=== PATIENT | female | born 1955 | race African-American/Black ===

== ENCOUNTER 2017-03-19 08:03 | Emergency (ER) | payer OTHER ==
[~2017-03-19] VITALS: Ht 160 cm; Wt 64.9 kg
[2017-03-19 08:43] LABS: HEMOGLOBIN ISTAT 12.6 gm/dL
[2017-03-19] MEDS ORDERED: HYDR-971 PO (08:45)
--- NOTE | 2017-03-19 08:45 | PHYS DOC ---
Past History Past Medical History: Hypertension, Other Past Surgical History: Appendectomy Alcohol Use: Occasionally Drug Use: None Adult General Chief Complaint Chief Complaint: HEMORRHOIDS HPI HPI 61-year-old -French female with a history of hemorrhoids now complaining of attack of hemorrhoid pain and a small amount of bleeding. Patient does have a history of anemia for which she takes iron supplementation and with which she has been compliant. She is not currently bleeding. She denies abdominal pain or cramping. She has had subtotal relief with Preparation H suppository. She otherwise feels well is no history of coagulopathy and is not on any anticoagulants. Review of Systems Review of Systems Constitutional: Denies fever or chills [] Eyes: Denies change in visual acuity, redness, or eye pain [] HENT: Denies nasal congestion or sore throat [] Respiratory: Denies cough or shortness of breath [] Cardiovascular: No additional information not addressed in HPI [] GI: Denies abdominal pain, nausea, vomiting, bloody stools or diarrhea [] : Denies dysuria or hematuria [] Musculoskeletal: Denies back pain or joint pain [] Integument: Denies rash or skin lesions [] Neurologic: Denies headache, focal weakness or sensory changes [] Endocrine: Denies polyuria or polydipsia [] Current Medications Current Medications Current Medications Medications (Trade) Dose Ordered Sig/Clau Start Time Stop Time Status Last Admin Dose Admin Ibuprofen (Motrin) 600 mg 1X ONCE 03/19/17 08:45 03/19/17 08:46 UNV Allergies Allergies Allergies Coded Allergies Type Severity Reaction Last Updated Verified No Known Drug Allergies 02/04/15 No Physical Exam Physical Exam Well-appearing older female in no acute distress with no pallor no tachycardia clear lungs regular rate and rhythm benign abdomen. Anal exam with small hemorrhoids which are tender for patient however no erythema warmth or fluctuance. Perianal area with no induration or fluctuance crepitus or skin changes, or disproportionate tenderness. Nurse present for external anal exam. Digital rectal exam not clinically indicated and no evidence of dried blood or gross bleeding. Constitutional: Well developed, well nourished, no acute distress, non-toxic appearance. [] HENT: Normocephalic, atraumatic, bilateral external ears normal, oropharynx moist, no oral exudates, nose normal. [] Eyes: PERRLA, EOMI, conjunctiva normal, no discharge. [] Neck: Normal range of motion, no tenderness, supple, no stridor. [] Cardiovascular:Heart rate regular rhythm, no murmur [] Lungs & Thorax: Bilateral breath sounds clear to auscultation [] Abdomen: Bowel sounds normal, soft, no tenderness, no masses, no pulsatile masses. [] Skin: Warm, dry, no erythema, no rash. [] Back: No tenderness, no CVA tenderness. [] Extremities: No tenderness, no cyanosis, no clubbing, ROM intact, no edema. [] Neurologic: Alert and oriented X 3, normal motor function, normal sensory function, no focal deficits noted. [] Psychologic: Affect normal, judgement normal, mood normal. [] Current Patient Data Vital Signs Vital Signs Date Time Temp Pulse Resp B/P (MAP) Pulse Ox O2 Delivery O2 Flow Rate FiO2 03/19/17 08:17 98.4 69 16 99 Room Air EKG EKG [] Radiology/Procedures Radiology/Procedures [] Impressions: External hemorrhoids Bleeding hemorrhoids by history Course & Med Decision Making Course & Med Decision Making Pertinent Labs and Imaging studies reviewed. (See chart for details) [] Signs and symptoms consistent with mild hemorrhoidal bleeding and exacerbation of pain. NSAIDs given in ED. Patient with no active bleeding and mild discomfort only. No evidence of thrombosis infection abscess or mass except for mild external hemorrhoids. Perianal exam unremarkable. Patient stable with unremarkable vital signs and otherwise feeling well. Discussed her use of NSAIDs as needed as well as [id number] hemorrhoid treatment. Discussed with the patient will give prescription for several Hunter to use only as needed and she can follow up with her doctor for reevaluation and referral for continued hemorrhoid care as needed. sHe agrees with outpatient follow-up and strict return precautions given Dragon Disclaimer Dragon Disclaimer This chart was dictated in whole or in part using Voice Recognition software in a busy, high-work load, and often noisy Emergency Department environment. It may contain unintended and wholly unrecognized errors or omissions. Departure Departure: Disposition: 01 HOME, SELF-CARE Condition: GOOD Referrals: JOHN GUTHRIE APRN (PCP) Patient Instructions: Hemorrhoids Additional Instructions: It appears that her hemorrhoids are causing U an attack of pain today. He had described some bleeding however this is now resolved. No active bleeding from her hemorrhoid site at this time. Wwec-nly-davlvni treatments including suppositories and hemorrhoid pads as needed. Take ibuprofen 800 mg every 6 hours and use Hunter as needed for breakthrough pain. Follow up with your doctor tomorrow for reevaluation and to discuss referral for continued hemorrhoid care as needed. Scripts Hydrocodone Bit/Acetaminophen (NORCO 5-325 TABLET) 1 Each Tablet 1 TAB PO TID for 3 Days, #9 TAB 0 Refills Prov: KING NICHOLAS MD 03/19/17 KING NICHOLAS MD Mar 19, 2017 08:45
[2017-03-19 08:50] VITALS: BP 165/94
[2017-03-19] MEDS ORDERED: IBUPROFEN 600 MG TABLET. PO ONE (09:00)
== END 2017-03-19 09:04 | disposition home or self-care (01) ==
LOC: ER 08:03
DX: K64.4 Residual hemorrhoidal skin tags (principal); D64.9 Anemia, unspecified; I10 Essential (primary) hypertension
CPT/HCPCS: 80047; 99283

== ENCOUNTER 2017-04-17 06:22 | Emergency (ER) | payer OTHER ==
[~2017-04-17] VITALS: Ht 160 cm; Wt 65.8 kg
[~2017-04-17 06:22] MED LIST: HYDR-971 PO
[2017-04-17] MEDS ORDERED: HYDR-971 PO (07:00)
--- NOTE | 2017-04-17 07:00 | PHYS DOC ---
Past History Past Medical History: GERD, Hypertension, Other Past Surgical History: Appendectomy Alcohol Use: Occasionally Drug Use: None Adult General Chief Complaint Chief Complaint: KNEE SWELLING HPI HPI Patient is a 61-year-old female who drove herself to the emergency department from her job at [employer] with the complaint of knee pain and swelling since yesterday. Her right knee has been swollen, warm, red, and painful since just today, and her left knee is also somewhat painful. She did not injure herself yesterday. She did not work yesterday, she was at home doing housework. Last night, a friend gave her 2 oxycodone's and she took those about 9 PM and she did get some rest. This morning she woke up at 3 AM and took 2 ibuprofen. Her shift started at 4. She was at work but just unable to work because of her right knee pain. She left work and drove here to the ED. She's never had this kind of knee pain before. She does have arthritis in her hands. No fever or chills. Review of Systems Review of Systems Constitutional: Denies fever or chills [] Musculoskeletal: As in history of present illness Allergies Allergies Allergies Coded Allergies Type Severity Reaction Last Updated Verified No Known Drug Allergies 02/04/15 No Physical Exam Physical Exam Constitutional: Well developed, well nourished, no acute distress, non-toxic appearance. Patient ambulated from her car into the ED but required a wheelchair to go to the exam room. HENT: Normocephalic, atraumatic, bilateral external ears normal, nose normal. [ ] Eyes: conjunctiva normal, no discharge. [] Neck: Normal range of motion, no stridor. [] Skin: Warm, dry, no erythema, no rash. [] Extremities: Right knee has mild diffuse swelling, may have a joint effusion that is not large. Right knee is mildly warm to the touch. Diffusely tender to touch. Patient has difficulty with range of motion of the knee due to pain. Passively the knee is able to be fully extended and flexed without much difficulty. Right calf is soft, non-indurated. Left knee is not swollen, no redness or warmth. Neurologic: Alert and oriented X 3, normal motor function, normal sensory function, no focal deficits noted. [] Current Patient Data Vital Signs Vital Signs Date Time Temp Pulse Resp B/P (MAP) Pulse Ox O2 Delivery O2 Flow Rate FiO2 04/17/17 06:34 98.5 79 20 97 Room Air EKG EKG [] Radiology/Procedures Radiology/Procedures Three-view x-rays of both knees read by me. The left knee is unremarkable. The right knee exhibits DJD which is worse on the lateral aspect. No acute injury. [ ] Course & Med Decision Making Course & Med Decision Making Pertinent Labs and Imaging studies reviewed. (See chart for details) I believe the patient is having a flare of DJD pain in the right knee. I reviewed her med list. She is already taking Celebrex so we will not add an NSAID. She does not have any strong pain medicine on her med list. I gave her a limited number of hydrocodone. I gave her a note for 2 days off work to rest and ice. She may benefit from orthopedic referral for management of knee pain. See instructions for plan. [] Dragon Disclaimer Dragon Disclaimer This chart was dictated in whole or in part using Voice Recognition software in a busy, high-work load, and often noisy Emergency Department environment. It may contain unintended and wholly unrecognized errors or omissions. Departure Departure: Impression: Primary Impression: Acute pain of right knee Additional Impressions: Swelling of right knee joint Right knee DJD Disposition: 01 HOME, SELF-CARE Condition: STABLE Referrals: JOHN GUTHRIE APRN (PCP) Patient Instructions: Arthritis, Degenerative-Brief Additional Instructions: X-rays show that your right knee has arthritis, also called degenerative joint disease. This is caused by wear and tear, and also can be the result of an old injury. You are already taking Celebrex, which is an arthritis medicine. Do not take additional ibuprofen or other [id number] arthritis medicines with the Celebrex. I wrote you for a small number of strong pain pills. You may take these with the medicines you are already taking. Do not take medicines that belong to other people because you never know if they might react with your medicines. No driving or working while taking the strong pain pills. This is an opiate and may be sedating and constipating. Use ice to your knees 15-20 minutes out of every 1-2 hours. Try to stay off of your legs and keep your legs elevated for 1-2 days, as long as you're knees are hurting. Call tomorrow for an appointment with your doctor. Your doctor might want to refer you to a knee specialist. Scripts Hydrocodone Bit/Acetaminophen (NORCO 5-325 TABLET) 1 Each Tablet 1-2 TAB PO Q4-6HRS for knee pain, #12 TAB Prov: DALJIT WALDRON MD 04/17/17 Problem Qualifiers DALJIT WALDRON MD Apr 17, 2017 07:00
[2017-04-17 07:09] VITALS: BP 138/97
--- NOTE | 2017-04-17 08:07 | RAD ---
Indication bilateral knee pain. No history of injury. AP oblique and lateral views of both knees were obtained. Views of the left knee demonstrate normal bony mineralization. Significant degenerative changes are not seen. No acute finding is apparent. Views of the right knee demonstrate a chronic appearing deformity involving the lateral tibial plateau. An acute finding is not seen. IMPRESSION: Unremarkable left knee. Chronic change predominantly involving the lateral tibial plateau of the left knee
== END 2017-04-17 07:10 | disposition home or self-care (01) ==
LOC: ER 06:22
DX: M17.11 Unilateral primary osteoarthritis, right knee (principal); I10 Essential (primary) hypertension; K21.9 Gastro-esophageal reflux disease without esophagitis
CPT/HCPCS: 73562; 99284

== ENCOUNTER → 2017-08-03 | Outpatient (CLI) | payer OTHER ==
[2017-08-03 19:50] LABS: CALCIUM 8.6 mg/dL (8.5-10.1); CREATININE 1.3 mg/dL (0.6-1.0); GFR 50.2; POTASSIUM 3.9 mmol/L (3.5-5.1)
[2017-08-04 14:33] LABS: THYROID STIM HORMONE (TSH) 3.607 uIU/mL (0.358-3.740)
== END | disposition home or self-care (01) ==
LOC: SPEC 18:24
PROVIDERS: ATTEND Nurse Practitioner
DX: I10 Essential (primary) hypertension (principal); E55.9 Vitamin D deficiency, unspecified; K21.9 Gastro-esophageal reflux disease without esophagitis
CPT/HCPCS: 36415; 80048; 80061; 82306; 84443

== ENCOUNTER 2017-12-15 08:20 | Emergency (ER) | payer SELFPAY ==
[~2017-12-15] VITALS: Ht 160 cm; Wt 65.8 kg
[2017-12-15] MEDS ORDERED: IV NORMAL SALINE 1,000ML 1,000 ML IV ONE (09:45)
[2017-12-15] MEDS ORDERED: LIDO:MAALOX 1:1 20 ML SINGLE DOSE PO ONE (10:00)
[2017-12-15] MEDS ORDERED: ONDANSETRON PF 4 MG/2 ML VIAL. IV ONE (10:00)
[2017-12-15 10:10] LABS: BASO % 1 % (0-3); EOS # 0.1 x10^3/uL (0.0-0.7); EOS % 1 % (0-3); HEMATOCRIT 37.7 % (36.0-47.0); HEMOGLOBIN 12.6 g/dL (12.0-15.5); LYMPH # 1.6 x10^3/uL (1.0-4.8); LYMPH % 22 % (24-48); MEAN CORPUSCULAR HEMOGLOBIN 31 pg (25-35); MEAN CORPUSCULAR HGB CONC 33 g/dL (31-37); MEAN CORPUSCULAR VOLUME 92 fL (79-100); MONO # 0.9 x10^3/uL (0.0-1.1); MONO % 12 % (0-9); NEUT # 4.7 x10^3uL (1.8-7.7); NEUT % 64 % (31-73); PLATELET COUNT 156 x10^3/uL (140-400); RED BLOOD COUNT 4.09 x10^6/uL (3.50-5.40); RED CELL DISTRIBUTION WIDTH 13.1 % (11.5-14.5); WHITE BLOOD COUNT 7.3 x10^3/uL (4.0-11.0)
[2017-12-15 10:24] LABS: ALBUMIN 2.8 g/dL (3.4-5.0); ALBUMIN/GLOBULIN RATIO 0.7 (1.0-1.7); CALCIUM 9.5 mg/dL (8.5-10.1); CREATININE 1.1 mg/dL (0.6-1.0); GFR 60.9; POTASSIUM 3.7 mmol/L (3.5-5.1); TOTAL BILIRUBIN 0.7 mg/dL (0.2-1.0); TOTAL PROTEIN 7.1 g/dL (6.4-8.2)
--- NOTE | 2017-12-15 10:53 | RAD ---
Indication: Abdominal pain for 14 days and vomiting. TECHNIQUE: Grayscale and color Doppler images of the abdomen. COMPARISON: None FINDINGS: Visualized pancreas is within normal limits. IVC is patent. No gallstones, pericholecystic fluid or gallbladder wall thickening. Main portal vein is patent with hepatopedal flow. CBD measures 4 mm and is within normal limits. Liver measures 14 cm in length and is normal in echogenicity without apparent focal lesion. Right kidney measures 10.5 cm in length without hydronephrosis. IMPRESSION: No cholelithiasis or sonographic evidence of acute cholecystitis. Electronically signed by: Sam Denton DO (12/15/2017 10:50 AM) [id number]
[2017-12-15 10:54] LABS: % BANDS 2 % (0-9); % LYMPHS 20 % (24-48); % MONOS 16 % (0-10); % SEGS 62 % (35-66)
[2017-12-15 10:55] LABS: PLT ESTIMATE ADEQUATE (ADEQUATE)
[2017-12-15] MEDS ORDERED: OMEP20CA9 PO (10:55)
[2017-12-15] MEDS ORDERED: SUCR1TAB35 PO (10:55)
--- NOTE | 2017-12-15 10:56 | PHYS DOC ---
Past History Past Medical History: GERD, Hypertension, Other Past Surgical History: Appendectomy Alcohol Use: Occasionally Drug Use: None Adult General Chief Complaint Chief Complaint: ABDOMINAL PAIN HPI HPI Patient is a 62 year old F who presents with right upper quadrant dull constant pain with fluctuating intensity that seems to be associated with eating. She has had this pain for years but it has been more frequent over the past several weeks and more constant over the past several days. She describes nausea without vomiting. She also has associated loose stools with intermittent constipation. She has had her appendix removed but still has her gallbladder. She has no other associated symptoms at this time. She has no other exacerbating or alleviating factors. Review of Systems Review of Systems Constitutional: Denies fever or chills [] Eyes: Denies change in visual acuity, redness, or eye pain [] HENT: Denies nasal congestion or sore throat [] Respiratory: Denies cough or shortness of breath [] Cardiovascular: No additional information not addressed in HPI [] GI: Negative except history of present illness : Denies dysuria or hematuria [] Musculoskeletal: Denies back pain or joint pain [] Integument: Denies rash or skin lesions [] Neurologic: Denies headache, focal weakness or sensory changes [] Endocrine: Denies polyuria or polydipsia [] All other systems were reviewed and found to be within normal limits, except as documented in this note. Family History Family History No pertinent family medical history was reported Current Medications Current Medications Current Medications Medications (Trade) Dose Ordered Sig/Clau Start Time Stop Time Status Last Admin Dose Admin Ketorolac Tromethamine (Toradol) 30 mg 1X ONCE 12/15/17 11:00 12/15/17 11:01 UNV Multi-Ingredient Mouthwash/Gargle (Gi Cocktail) 20 ml 1X ONCE 12/15/17 10:00 12/15/17 10:01 DC 12/15/17 09:56 20 ML Ondansetron HCl (Zofran) 4 mg 1X ONCE 12/15/17 10:00 12/15/17 10:01 DC 12/15/17 10:02 4 MG Sodium Chloride 1,000 ml @ 1,000 mls/hr 1X ONCE 12/15/17 09:45 12/15/17 10:44 DC 12/15/17 10:01 1,000 MLS/HR Allergies Allergies Allergies Coded Allergies Type Severity Reaction Last Updated Verified No Known Drug Allergies 02/04/15 No Physical Exam Physical Exam Constitutional: Well developed, well nourished, no acute distress, non-toxic appearance. [] HENT: Normocephalic, atraumatic, Eyes: EOMI, conjunctiva normal, no discharge. [] Neck: Normal range of motion, no tenderness, supple, no stridor. [] Cardiovascular:Heart rate regular rhythm, Lungs & Thorax: Bilateral breath sounds clear to auscultation [] Abdomen: Bowel sounds normal, soft, no masses, no pulsatile masses. [] Mild generalized tenderness with worse pain in the right upper quadrant and epigastric area Skin: Warm, dry, no erythema, no rash. [] Back: No tenderness, no CVA tenderness. [] Extremities: No tenderness, no cyanosis, no clubbing, ROM intact, no edema. [] Neurologic: Alert and oriented X 3, normal motor function, normal sensory function, no focal deficits noted. [] Psychologic: Affect normal, judgement normal, mood normal. [] Current Patient Data Vital Signs Normal vital signs. Please review nursing documentation for specifics Lab Results Laboratory Tests Test 12/15/17 09:40 12/15/17 09:49 Sodium Level 140 mmol/L (136-145) Potassium Level 3.7 mmol/L (3.5-5.1) Chloride Level 104 mmol/L (98-107) Carbon Dioxide Level 28 mmol/L (21-32) Anion Gap 8 (6-14) Blood Urea Nitrogen 8 mg/dL (7-20) Creatinine 1.1 mg/dL (0.6-1.0) H Estimated GFR (Cockcroft-Gault) 60.9 BUN/Creatinine Ratio 7 (6-20) Glucose Level 93 mg/dL (70-99) Calcium Level 9.5 mg/dL (8.5-10.1) Total Bilirubin 0.7 mg/dL (0.2-1.0) Aspartate Amino Transferase (AST) 47 U/L (15-37) H Alanine Aminotransferase (ALT) 57 U/L (14-59) Alkaline Phosphatase 69 U/L (46-116) Total Protein 7.1 g/dL (6.4-8.2) Albumin 2.8 g/dL (3.4-5.0) L Albumin/Globulin Ratio 0.7 (1.0-1.7) L Lipase 368 U/L (73-393) White Blood Count 7.3 x10^3/uL (4.0-11.0) Red Blood Count 4.09 x10^6/uL (3.50-5.40) Hemoglobin 12.6 g/dL (12.0-15.5) Hematocrit 37.7 % (36.0-47.0) Mean Corpuscular Volume 92 fL (79-100) Mean Corpuscular Hemoglobin 31 pg (25-35) Mean Corpuscular Hemoglobin Concent 33 g/dL (31-37) Red Cell Distribution Width 13.1 % (11.5-14.5) Platelet Count 156 x10^3/uL (140-400) Neutrophils (%) (Auto) 64 % (31-73) Lymphocytes (%) (Auto) 22 % (24-48) L Monocytes (%) (Auto) 12 % (0-9) H Eosinophils (%) (Auto) 1 % (0-3) Basophils (%) (Auto) 1 % (0-3) Neutrophils # (Auto) 4.7 x10^3uL (1.8-7.7) Lymphocytes # (Auto) 1.6 x10^3/uL (1.0-4.8) Monocytes # (Auto) 0.9 x10^3/uL (0.0-1.1) Eosinophils # (Auto) 0.1 x10^3/uL (0.0-0.7) Basophils # (Auto) 0.0 x10^3/uL (0.0-0.2) Platelet Estimate Pending EKG EKG [] Radiology/Procedures Radiology/Procedures US ABDOMEN LIMITED Impressions: No acute disease noted Course & Med Decision Making Course & Med Decision Making Pertinent Labs and Imaging studies reviewed. (See chart for details) Magy's symptoms improved moderately with a GI cocktail. She was also given IV fluids and nausea medication. Dragon Disclaimer Dragon Disclaimer This electronic medical record was generated, in whole or in part, using a voice recognition dictation system. Departure Departure: Impression: Primary Impression: Gastritis Disposition: 01 HOME, SELF-CARE Condition: STABLE Referrals: JOHN GUTHRIE APRN (PCP) Patient Instructions: Gastritis, Adult Additional Instructions: Magy was seen in the emergency department for abdominal pain. No emergency medical condition was found on history or physical exam. She did have normal labs as well as a normal ultrasound of her upper abdomen. Her symptoms are most consistent with gastritis or irritation the stomach. This is likely caused by virus versus diet. She was encouraged to avoid fatty, spicy and greasy foods. She was given a prescription for Carafate to be taken before meals as well as omeprazole to be taken daily. She is encouraged to follow-up with her primary care doctor in the next 3-5 days and return the emergency room if she develops new or worsening symptoms. Scripts Omeprazole (OMEPRAZOLE) 20 Mg Capsule.dr 1 CAP PO DAILY, #30 CAP 0 Refills Prov: WISAM HEATH MD 12/15/17 Sucralfate (CARAFATE) 1 Gm Tablet 1 TAB PO QID for 14 Days, #56 TAB 1 Refill Take prior to meals Prov: WISAM HEATH MD 12/15/17 Problem Qualifiers Primary Impression: Gastritis Gastritis type: unspecified gastritis Chronicity: unspecified Gastritis bleeding: without bleeding Qualified Codes: K29.70 - Gastritis, unspecified, without bleeding WISAM HEATH MD Dec 15, 2017 10:56
[2017-12-15 11:03] VITALS: BP 157/79
[2017-12-15] MEDS ORDERED: KETOROLAC 30 MG/ML VIAL. IV ONE (11:15)
== END 2017-12-15 11:23 | disposition home or self-care (01) ==
LOC: ER 08:20
DX: K29.71 Gastritis, unspecified, with bleeding (principal); K21.9 Gastro-esophageal reflux disease without esophagitis; I10 Essential (primary) hypertension; Z90.49 Acquired absence of other specified parts of digestive tract
CPT/HCPCS: 36415; 76705; 80053; 83690; 85007; 85025; 96361; 96374; 96375; 99285; J1885; J2405; J7030

== ENCOUNTER 2018-12-14 21:20 | Emergency (ER) | payer OTHER ==
[~2018-12-14] VITALS: Ht 160 cm; Wt 65.8 kg
[~2018-12-14 21:20] MED LIST changes: +HYDR-3165 PO; -HYDR-971 PO; +OMEP20CA9 PO; +SUCR1TAB35 PO
--- NOTE | 2018-12-14 21:56 | ED.ADGEN ---
Past History Past Medical History: Anemia, GERD, Hypertension, Other Past Surgical History: Appendectomy Alcohol Use: None Drug Use: None Adult General Chief Complaint Chief Complaint back pain HPI HPI 63 years old female presented to the emergency department with back pain started yesterday after fall described her pain sharp constant in the lumbar area she is able to ambulate, today her pain got a lot worse rated 10 out of 10 units cold she received 50 g of fentanyl symptoms improved. Does not radiate to her lower extremities no weakness or numbness she denies any other symptoms Review of Systems Review of Systems Constitutional: Denies fever or chills [] Eyes: Denies change in visual acuity, redness, or eye pain [] HENT: Denies nasal congestion or sore throat [] Respiratory: Denies cough or shortness of breath [] Cardiovascular: No additional information not addressed in HPI [] GI: Denies abdominal pain, nausea, vomiting, bloody stools or diarrhea [] : Denies dysuria or hematuria [] Musculoskeletal: Denies joint pain [] Integument: Denies rash or skin lesions [] Neurologic: Denies headache, focal weakness or sensory changes [] Endocrine: Denies polyuria or polydipsia [] All other systems were reviewed and found to be within normal limits, except as documented in this note. Current Medications Current Medications Current Medications Medications (Trade) Dose Ordered Sig/Clau Start Time Stop Time Status Last Admin Dose Admin Fentanyl Citrate (Fentanyl 2ml Vial) 50 mcg 1X ONCE 12/14/18 21:30 12/14/18 21:36 DC 12/14/18 22:14 50 MCG Allergies Allergies Allergies Coded Allergies Type Severity Reaction Last Updated Verified No Known Drug Allergies 12/15/17 No Physical Exam Physical Exam Constitutional: Well developed, well nourished, no acute distress, non-toxic appearance. [] HENT: Normocephalic, atraumatic, bilateral external ears normal, oropharynx moist, no oral exudates, nose normal. [] Eyes: PERRLA, EOMI, conjunctiva normal, no discharge. [] Neck: Normal range of motion, no tenderness, supple, no stridor. [] Cardiovascular:Heart rate regular rhythm, no murmur [] Lungs & Thorax: Bilateral breath sounds clear to auscultation [] Abdomen: Bowel sounds normal, soft, no tenderness, no masses, no pulsatile masses. [] Skin: Warm, dry, no erythema, no rash. [] Back: Lumbar spine tenderness tenderness, no CVA tenderness. [] Extremities: No tenderness, no cyanosis, no clubbing, ROM intact, no edema. [] Neurologic: Alert and oriented X 3, normal motor function, normal sensory function, no focal deficits noted. [] Current Patient Data Vital Signs Vital Signs Date Time Temp Pulse Resp B/P (MAP) Pulse Ox O2 Delivery O2 Flow Rate FiO2 12/14/18 22:14 16 12/14/18 21:20 98.4 75 96 Room Air Lab Results Laboratory Tests Test 12/14/18 22:10 White Blood Count 3.7 x10^3/uL (4.0-11.0) L Red Blood Count 4.21 x10^6/uL (3.50-5.40) Hemoglobin 13.0 g/dL (12.0-15.5) Hematocrit 38.5 % (36.0-47.0) Mean Corpuscular Volume 91 fL (79-100) Mean Corpuscular Hemoglobin 31 pg (25-35) Mean Corpuscular Hemoglobin Concent 34 g/dL (31-37) Red Cell Distribution Width 13.7 % (11.5-14.5) Platelet Count 169 x10^3/uL (140-400) Sodium Level 138 mmol/L (136-145) Potassium Level 3.3 mmol/L (3.5-5.1) L Chloride Level 100 mmol/L (98-107) Carbon Dioxide Level 28 mmol/L (21-32) Anion Gap 10 (6-14) Blood Urea Nitrogen 8 mg/dL (7-20) Creatinine 1.1 mg/dL (0.6-1.0) H Estimated GFR (Cockcroft-Gault) 60.7 Glucose Level 121 mg/dL (70-99) H Calcium Level 8.6 mg/dL (8.5-10.1) EKG EKG [] Radiology/Procedures Radiology/Procedures [] Course & Med Decision Making Course & Med Decision Making Pertinent Labs and Imaging studies reviewed. (See chart for details) [] Final Impression Final Impression [] Problems: (1) Back pain Qualifiers: Qualified Codes: M54.5 - Low back pain (2) Back contusion Qualifiers: Qualified Codes: S20.229A - Contusion of unspecified back wall of thorax, initial encounter [facility] Disclaimer Dragon Disclaimer This electronic medical record was generated, in whole or in part, using a voice recognition dictation system. PIERRE MONTES MD Dec 14, 2018 21:56
--- NOTE | 2018-12-14 22:13 | RAD ---
CT LUMBAR SPINE WO CONTRAST Indication: Trauma from fall yesterday, severe lower back pain Technique: Noncontrast CT imaging was performed of the lumbar spine, multiplanar reconstruction images submitted. One or more of the following individualized dose reduction techniques were utilized for this examination: 1. Automated exposure control 2. Adjustment of the mA and/or kV according to patient size 3. Use of iterative reconstruction technique. Comparison: None Findings: There is transitional anatomy. There is grade 1 anterior spondylolisthesis at what is considered L5-S1, formed intervertebral disc space at what is considered S1-S2. Vertebral body stature is maintained. No acute lumbar spine fracture is identified. There is multilevel facet degenerative change greater inferiorly of the lumbar spine. There is disc osteophyte complex in the anterior aspect of the right S1-2 neural foramen with mild narrowing. There is also likely mild narrowing of the left L5-S1 neural foramen in part by bulge. There is mild degenerative disc disease L5-S1. There is mild dextroscoliosis. IMPRESSION: 1. There is transitional anatomy of the lumbar spine, grade 1 anterior spondylolisthesis at what is considered L5-S1. There is facet degenerative change greater inferiorly of the lumbar spine. There is mild L5-S1 degenerative disc disease. No acute lumbar spine fracture is identified. Electronically signed by: Camron Christian MD (12/14/2018 10:10 PM) [facility]
[2018-12-14 22:28] LABS: HEMATOCRIT 38.5 % (36.0-47.0); RED BLOOD COUNT 4.21 x10^6/uL (3.50-5.40); RED CELL DISTRIBUTION WIDTH 13.7 % (11.5-14.5); WHITE BLOOD COUNT 3.7 x10^3/uL (4.0-11.0)
[2018-12-14 22:37] LABS: CALCIUM 8.6 mg/dL (8.5-10.1); CREATININE 1.1 mg/dL (0.6-1.0); GFR 60.7; POTASSIUM 3.3 mmol/L (3.5-5.1)
[2018-12-14] MEDS ORDERED: KETOROLAC 30 MG/ML VIAL. IV ONE (22:45)
[2018-12-14] MEDS ORDERED: HYDR-3165 PO (22:46)
[2018-12-14] MEDS ORDERED: MELO7.5T5 PO (22:46)
[2018-12-14 23:35] VITALS: BP 132/82
== END 2018-12-14 23:36 | disposition home or self-care (01) ==
LOC: ER 21:20
DX: S30.0XXA Contusion of lower back and pelvis, initial encounter (principal); K21.9 Gastro-esophageal reflux disease without esophagitis; I10 Essential (primary) hypertension; Z86.2 Personal history of diseases of the blood and blood-forming organs and certain disorders involving the immune mechanism; Z90.89 Acquired absence of other organs; W18.39XA Other fall on same level, initial encounter; Y93.89 Activity, other specified; Y92.89 Other specified places as the place of occurrence of the external cause; Y99.8 Other external cause status
CPT/HCPCS: 36415; 72131; 80048; 85027; 96374; 96375; 99284; J1885; J3010

== ENCOUNTER 2018-12-18 22:52 | Emergency (ER) | payer OTHER ==
[~2018-12-18 22:52] MED LIST changes: +MELO7.5T5 PO
[2018-12-18] MEDS ORDERED: ORPHENADRINE CITRATE 60 MG/2 ML VIAL. IM ONE (23:30)
[2018-12-18] MEDS ORDERED: LIDOCAINE (700MG/PATCH) PATCH. TD ONE (23:30)
[2018-12-18] MEDS ORDERED: oxyCODONE/APAP 5/325 1 TAB TABLET PO ONE (23:30)
[2018-12-18] MEDS ORDERED: DEXAMETHASONE 4 MG TABLET PO ONE (23:30)
--- NOTE | 2018-12-19 | PHYS DOC ---
Past History Past Medical History: Anemia, GERD, Hypertension Past Surgical History: Appendectomy Alcohol Use: Rarely Drug Use: None Adult General Chief Complaint Chief Complaint: BACK INJURY HPI HPI Patient is a 63 year old female who presents with low back pain. She came in 4 days ago after sustaining a back injury at work. Pt reports that this pain is the same she presented with. There has been no re-injury or trauma to the area since her fall 4 days ago. She was CT scanned and given meloxicam and norco of which neither has helped. Her pain is midline in the lumbar region and is still a 10/10 sharp stabbing pain that radiates down both legs. Symptoms do not vary per time of day. Moving her trunk in any direction makes the pain worse. Pt reports no saddle anesthesia or bowel/bladder incontinence. Review of Systems Review of Systems Constitutional: Denies fever or chills [] Eyes: Denies change in visual acuity, redness, or eye pain [] HENT: Denies nasal congestion or sore throat [] Respiratory: Denies cough or shortness of breath [] Cardiovascular: Denies chest pain or palpitations GI: Denies abdominal pain, nausea, vomiting, or diarrhea [] : Denies dysuria or hematuria [] Musculoskeletal: Admits back pain. Denies joint pain [] Integument: Denies rash or skin lesions [] Neurologic: Denies headache, focal weakness or sensory changes [] Complete systems were reviewed and found to be within normal limits, except as documented in this note. Current Medications Current Medications Current Medications Medications (Trade) Dose Ordered Sig/Clau Start Time Stop Time Status Last Admin Dose Admin Dexamethasone (Decadron) 10 mg 1X ONCE 12/18/18 23:30 12/18/18 23:31 DC Lidocaine (Lidoderm) 1 patch 1X ONCE 12/18/18 23:30 12/18/18 23:31 UNV Orphenadrine Citrate (Norflex) 60 mg 1X ONCE 12/18/18 23:30 12/18/18 23:31 DC Oxycodone/ Acetaminophen (Percocet 5/325) 1 tab 1X ONCE 12/18/18 23:30 12/18/18 23:31 DC Allergies Allergies Allergies Coded Allergies Type Severity Reaction Last Updated Verified No Known Drug Allergies 12/15/17 No Physical Exam Physical Exam Constitutional: Well developed, well nourished, no acute distress, non-toxic appearance. Pt lying on back and audibly groaning through interview and exam. [] HENT: Normocephalic, atraumatic, nose normal. [] Eyes: Conjunctiva normal, no discharge. [] Neck: Normal range of motion, no tenderness, supple Cardiovascular: Heart rate regular rhythm, no murmur [] Lungs & Thorax: Bilateral breath sounds clear to auscultation [] Abdomen: Soft, no tenderness Skin: Warm, dry, no erythema, no rash. [] Back: Notably tender to palpation paraspinal area throughout lumbar region, no CVA tenderness. [] Extremities: No tenderness, ROM intact, no edema. [] Neurologic: Alert and oriented, normal motor function, normal sensory function, no focal deficits noted. [] Psychologic: Affect normal, judgement normal, mood normal. [] EKG EKG [] Radiology/Procedures Radiology/Procedures [] Course & Med Decision Making Course & Med Decision Making Pt is a 63 year old female who presents with low back pain s/p work injury [address] scan showed spondylolisthesis with no fracture per [employer] review from recent ED visit at [facility]. No loss of bowel/bladder. Denies further trauma. Symptomatic treatment provided. Patient stable for discharge with outpatient follow-up with PCP/ pain management. Pain management referral provided. Discussed findings and plan with patient and family, who acknowledge understanding and agreement. Dragon Disclaimer Dragon Disclaimer This electronic medical record was generated, in whole or in part, using a voice recognition dictation system. Departure Departure: Impression: Primary Impression: Back pain Disposition: 01 HOME, SELF-CARE Condition: STABLE Referrals: JOHN GUTHRIE APRN (PCP) Patient Instructions: Back Pain, Adult, [id number] Additional Instructions: Please call Dr. Fermin Swan (pain management) for follow up in next 3-5 days at [phone]. Scripts Prednisone (PREDNISONE) 20 Mg Tablet 2 TAB PO DAILY for back pain, #8 TAB Prov: KING BRANCH DO 12/19/18 Lidocaine (Lidocaine) 1 Each Adh..patch 1 EACH TP Q12HR PRN for PAIN, #6 PATCH Prov: KING BRANCH DO 12/19/18 Oxycodone Hcl/Acetaminophen (PERCOCET 5-325 MG TABLET ) 1 Each Tablet 1 TAB PO PRN Q6HRS PRN for PAIN, #10 TAB Prov: KING BRANCH DO 12/19/18 Orphenadrine Citrate (ORPHENADRINE CITRATE) 100 Mg Tablet.er 1 TAB PO BID PRN for MUSCLE PAIN, #14 TAB 0 Refills Prov: KING BRANCH DO 12/19/18 Problem Qualifiers Primary Impression: Back pain Back pain location: low back pain Chronicity: acute Back pain laterality: bilateral Sciatica presence: with sciatica Sciatica laterality: bilateral sciatica Qualified Codes: M54.42 - Lumbago with sciatica, left side; M54.41 - Lumbago with sciatica, right side KING BRANCH DO Dec 19, 2018 00:00
[2018-12-19 00:39] LABS: BACTERIA,URINE 0 /HPF (0-FEW); BILIRUBIN,URINE NEG (NEG); CLARITY,URINE CLEAR; COLOR,URINE YELLOW; GLUCOSE,URINE NEG (NEG); NITRITE,URINE NEG (NEG); RBC,URINE 0 /HPF (0-2); UROBILINOGEN,URINE 0.2 mg/dL (0.2 mg/dL); WBC,URINE OCC /HPF (0-4)
[2018-12-19 00:40] LABS: SQUAMOUS EPITHELIAL CELL,UR OCC /LPF
[2018-12-19] MEDS ORDERED: OXYC1TAB15 PO (00:48)
[2018-12-19] MEDS ORDERED: ORPH-16 PO (00:48)
[2018-12-19] MEDS ORDERED: PRED20TA PO (00:48)
[2018-12-19] MEDS ORDERED: LIDO700A39 TP (00:48)
[2018-12-19 01:00] VITALS: BP 152/72
== END 2018-12-19 01:10 | disposition home or self-care (01) ==
LOC: ER 22:52
DX: M54.41 Lumbago with sciatica, right side (principal); M54.42 Lumbago with sciatica, left side; M43.16 Spondylolisthesis, lumbar region; K21.9 Gastro-esophageal reflux disease without esophagitis; I10 Essential (primary) hypertension; Z86.2 Personal history of diseases of the blood and blood-forming organs and certain disorders involving the immune mechanism
CPT/HCPCS: 81001; 96372; 99284; J2360; J8540; 99283

== ENCOUNTER 2019-05-03 23:48 | Emergency (ER) | payer SELFPAY ==
[~2019-05-03] VITALS: Ht 160 cm; Wt 65.8 kg
[~2019-05-03 23:48] MED LIST changes: +LIDO700A21 TP; +OMEP20CA10 PO; -OMEP20CA9 PO; +ORPH-16 PO; +OXYC1TAB15 PO; +PRED20TA PO
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
[2019-05-04] MEDS ORDERED: KETOROLAC 15 MG/ML VIAL. IV ONE (00:15)
[2019-05-04 00:43] LABS: BASO # 0.1 x10^3/uL (0.0-0.2); BASO % 1 % (0-3); EOS # 0.1 x10^3/uL (0.0-0.7); EOS % 1 % (0-3); HEMATOCRIT 37.9 % (36.0-47.0); HEMOGLOBIN 12.3 g/dL (12.0-15.5); LYMPH # 3.5 x10^3/uL (1.0-4.8); LYMPH % 55 % (24-48); MEAN CORPUSCULAR HEMOGLOBIN 31 pg (25-35); MEAN CORPUSCULAR HGB CONC 33 g/dL (31-37); MEAN CORPUSCULAR VOLUME 95 fL (79-100); MONO # 0.5 x10^3/uL (0.0-1.1); MONO % 8 % (0-9); NEUT # 2.2 x10^3uL (1.8-7.7); NEUT % 35 % (31-73); PLATELET COUNT 241 x10^3/uL (140-400); RED CELL DISTRIBUTION WIDTH 13.9 % (11.5-14.5); WHITE BLOOD COUNT 6.3 x10^3/uL (4.0-11.0)
[2019-05-04 00:57] LABS: BACTERIA,URINE 0 /HPF (0-FEW); BILIRUBIN,URINE NEG (NEG); CLARITY,URINE CLEAR; GLUCOSE,URINE NEG (NEG); NITRITE,URINE NEG (NEG); RBC,URINE OCC /HPF (0-2); SQUAMOUS EPITHELIAL CELL,UR OCC /LPF; UROBILINOGEN,URINE 0.2 mg/dL (0.2 mg/dL); WBC,URINE OCC /HPF (0-4)
[2019-05-04 00:58] LABS: BARBITURATES NEG (NEG); BENZODIAZEPINES NEG (NEG); CANNABINOIDS NEG (NEG); COCAINE NEG (NEG); COLOR,URINE COLORLESS; METHADONE NEG (NEG); OPIATES NEG (NEG); PHENCYCLIDINE NEG (NEG)
[2019-05-04 01:02] LABS: AMPHETAMINE/METHAMPHETAMINE NEG (NEG)
[2019-05-04 01:09] LABS: ALBUMIN 3.9 g/dL (3.4-5.0); CALCIUM 8.9 mg/dL (8.5-10.1); CREATININE 1.1 mg/dL (0.6-1.0); DIRECT BILIRUBIN 0.1 mg/dL (0.0-0.2); GFR 60.7; MAGNESIUM 2.2 mg/dL (1.8-2.4); POTASSIUM 3.6 mmol/L (3.5-5.1); TOTAL BILIRUBIN 0.3 mg/dL (0.2-1.0); TOTAL PROTEIN 7.3 g/dL (6.4-8.2)
[2019-05-04 06:39] VITALS: BP 128/80
--- NOTE | 2019-05-04 09:04 | RAD ---
EXAM: AP View of the chest DATE: 05/04/2019 12:23 AM INDICATION: Chest pain COMPARISON: No Prior FINDINGS: The heart is not enlarged. Mediastinal and hilar contours are normal. No focal parenchymal airspace opacity. No pleural effusion or pneumothorax. IMPRESSION: 1. No radiographic evidence for acute cardiopulmonary process. Electronically signed by: Mayco Montgomery MD (05/04/2019 9:02 AM) [id number]
--- NOTE | 2019-05-05 01:54 | EKG ---
[address] [address] Test Date: 2019-05-04 Test Time: 00:01:38 Pat Name: KEVIN PHAN Department: Room: Gender: F Executive Candidate Developer: FLAKO : 1955 Requested By: MASOOD RIVERA Order Number: [id number] Reading MD: Measurements Intervals [place] Rate: 76 P: 53 VA: 160 QRS: 18 QRSD: 84 T: -66 QT: 410 QTc: 461 Interpretive Statements SINUS RHYTHM LEFT ATRIAL ABNORMALITY INCOMPLETE RIGHT BUNDLE BRANCH BLOCK T ABNORMALITY IN INFERIOR LEADS ABNORMAL ECG RI6.01 No previous ECG available for comparison
--- NOTE | 2019-05-07 09:50 | EKG ---
[address] [address] Test Date: 2019-05-04 Test Time: 03:33:22 Pat Name: KEVIN PHAN Department: Room: Gender: F Sand Miller: : 1955 Requested By: MASOOD RIVERA Order Number: [id number] Reading MD: Measurements Intervals [place] Rate: P: MT: QRS: QRSD: T: QT: QTc: Interpretive Statements
== END 2019-05-04 06:39 | disposition home or self-care (01) ==
LOC: ER 23:48
DX: R07.89 Other chest pain (principal); F10.129 Alcohol abuse with intoxication, unspecified; R74.8 Abnormal levels of other serum enzymes; K21.9 Gastro-esophageal reflux disease without esophagitis; I10 Essential (primary) hypertension; F17.210 Nicotine dependence, cigarettes, uncomplicated; Z86.2 Personal history of diseases of the blood and blood-forming organs and certain disorders involving the immune mechanism; Y90.7 Blood alcohol level of 200-239 mg/100 ml
CPT/HCPCS: 36415; 71045; 80048; 80076; 80307; 81001; 82550; 83690; 83735; 83880; 84443; 84484; 85025; 85379; 85610; 85730; 93005; 96374; 99285; G0480; J1885

== ENCOUNTER 2019-07-11 07:39 | Emergency (ER) | payer SELFPAY ==
[~2019-07-11] VITALS: Ht 160 cm; Wt 64.4 kg
--- NOTE | 2019-07-11 07:55 | PHYS DOC ---
Past History Past Medical History: Anemia, GERD, Hypertension Past Surgical History: Appendectomy Smoking: Cigarettes Alcohol Use: Rarely Drug Use: None Adult General Chief Complaint Chief Complaint: ABDOMINAL PAIN HPI HPI Patient is a 64-year-old female who woke up this morning stating she was very nauseous and actually vomited. She tried to call into work but the phone was busy. She then decided to go into work and when she got to work she became very lightheaded remained nauseous and developed lower abdominal discomfort. She states she also had some chest discomfort at work. She denied any shortness of breath. She denies any diaphoresis. Right now, her biggest complaint is her lower abdomen. She denies any vaginal bleeding or discharge. She states she is not currently sexually active. Review of Systems Review of Systems Constitutional: Denies fever or chills [] Eyes: Denies change in visual acuity, redness, or eye pain [] HENT: Denies nasal congestion or sore throat [] Respiratory: Denies cough or shortness of breath [] Cardiovascular: No additional information not addressed in HPI [] GI: Reports lower abdominal cramping[] : Denies dysuria or hematuria [] Musculoskeletal: Denies back pain or joint pain [] Integument: Denies rash or skin lesions [] Neurologic: Denies headache, focal weakness or sensory changes [] Endocrine: Denies polyuria or polydipsia [] All other systems were reviewed and found to be within normal limits, except as documented in this note. Current Medications Current Medications Current Medications Medications (Trade) Dose Ordered Sig/Clau Start Time Stop Time Status Last Admin Dose Admin Fentanyl Citrate (Fentanyl 2ml Vial) 50 mcg PRN Q2HR PRN 07/11/19 07:45 UNV Iohexol (Omnipaque 300 Mg/ml) 75 ml 1X ONCE 07/11/19 08:00 07/11/19 08:01 UNV Ondansetron HCl (Zofran) 4 mg 1X ONCE 07/11/19 07:45 07/11/19 07:46 UNV Allergies Allergies Allergies Coded Allergies Type Severity Reaction Last Updated Verified No Known Drug Allergies 12/15/17 No Physical Exam Physical Exam Constitutional: Well developed, well nourished, moderate distress, non-toxic appearance. [] HENT: Normocephalic, atraumatic, bilateral external ears normal, oropharynx moist, no oral exudates, nose normal. [] Eyes: PERRLA, EOMI, conjunctiva normal, no discharge. [] Neck: Normal range of motion, no tenderness, supple, no stridor. [] Cardiovascular:Heart rate regular rhythm, no murmur [] Lungs & Thorax: Bilateral breath sounds clear to auscultation [] Abdomen: Lower abdominal pain with palpation no rebound or guarding[] Skin: Warm, dry, no erythema, no rash. [] Back: No tenderness, no CVA tenderness. [] Extremities: No tenderness, no cyanosis, no clubbing, ROM intact, no edema. [] Neurologic: Alert and oriented X 3, normal motor function, normal sensory function, no focal deficits noted. [] Psychologic: Anxious, very tearful[] EKG EKG EKG: Normal sinus rhythm rate of [address]-T changes[] Radiology/Procedures Radiology/Procedures [] Impressions: PROCEDURE: CT ABD PELV W/ IV CONTRST ONLY CT study of the abdomen and pelvis with contrast Clinical indications: Severe lower abdominal pain TECHNIQUE: After IV infusion of 75 cc of Omnipaque 300, helical CT scanning of the abdomen and pelvis was performed. No GI contrast was administered. This may decrease the sensitivity to detect GI tract pathology. PQRS compliance Statement One or more of the following individualized dose reduction techniques were utilized for this study: 1. Automated exposure control 2. Adjustment of the mA and/or kV according to patient size 3. Use of iterative reconstruction technique COMPARISON: September 22, 2006. FINDINGS: The liver spleen and pancreas and gallbladder are normal. No extra hepatic biliary ductal dilatation is seen. No adrenal mass is evident. Both kidneys are normal without hydronephrosis or hydroureter. Urinary bladder wall smooth. The endometrial canal measures up to 14 mm in thickness. This is abnormal. There are 2 enhancing nodules within the endometrial canal one measuring 22 mm on the left side and one measuring 16 mm in transverse dimension on the right side. No dominant ovarian cyst or mass is seen. There is nodular thickening of the posterior inferior aspect of the vaginal vault on the left side which measures 32 mm in AP dimension and 22 mm in transverse dimension. There is diffuse wall thickening of the colon down into the rectosigmoid region. The terminal ileum is unremarkable. There are no CT findings of appendicitis. No obstructive bowel pattern is evident. There is wall thickening of the antrum of the stomach and the proximal duodenum. No free air or free fluid is evident. Mild lung base atelectasis is seen bilaterally. No lytic process is evident. Transitional vertebra is evident and it will be labeled as S1 for the sake of consistency.Grade 1 anterolisthesis of L5-S1 is seen secondary to facet arthropathy. There is moderate spinal canal stenosis at L5-S1. IMPRESSION: Diffuse colitis. Wall thickening of the antrum stomach and proximal duodenum. This may be secondary to gastritis/duodenitis or peptic ulcer disease. Abnormal endometrial canal of the uterus including 2 enhancing nodules. Recommend outpatient transabdominal and transvaginal pelvic sonography for further evaluation. Abnormal nodular soft tissue thickening of the posterior inferior vaginal vault on the left side. Recommend correlation with clinical pelvic exam. Pelvic sonography including transperineal study may be helpful. Spinal canal stenosis at L4-5 secondary to grade 1 anterolisthesis. Course & Med Decision Making Course & Med Decision Making Pertinent Labs and Imaging studies reviewed. (See chart for details) [ED course: Evaluation reveals a 64-year-old anxious female who is in moderate distress. She was given IV fluids, fentanyl and Zofran during her stay in the department and after some time states that her pain completely resolved. Laboratory studies did not show anything alarming. Not surprisingly her urine was positive for alcohol. She does have a urinary tract infection that appears mild as well. Her EKG did not show any evidence of ischemia. I did discuss the abnormal findings on the CT scan with the patient. I'll start her on omeprazole as an outpatient and have encouraged her to follow with her primary care physician for an outpatient ultrasound.] Dragon Disclaimer Dragon Disclaimer This electronic medical record was generated, in whole or in part, using a voice recognition dictation system. Departure Departure: Impression: Primary Impression: Abdominal pain Additional Impression: Urinary tract infection Disposition: 01 HOME, SELF-CARE Condition: STABLE Referrals: JOHN GUTHRIE APRN (PCP) Patient Instructions: Abdominal Pain, Urinary Tract Infection Additional Instructions: It is very important that you follow with your primary care physician to have an outpatient pelvic ultrasound ordered. This needs to be done within the next 1-2 weeks. Please return to the emergency department if her pain intensifies or he develop any fever chills or sweats. Scripts Omeprazole (OMEPRAZOLE) 40 Mg Capsule. 1 CAP PO DAILY for gastritis, #30 CAP 3 Refills Prov: ANIL VENEGAS DO 07/11/19 Ondansetron (ONDANSETRON ODT) 4 Mg Tab.rapdis 1 TAB PO PRN Q6-8HRS for NAUSEA, #16 TAB Prov: ANIL VENEGAS DO 07/11/19 Ciprofloxacin Hcl (CIPRO) 500 Mg Tablet 1 TAB PO BID for UTI, #10 TAB Prov: ANIL VENEGAS DO 07/11/19 Problem Qualifiers Primary Impression: Abdominal pain Abdominal location: lower abdomen, unspecified Qualified Codes: R10.30 - Lower abdominal pain, unspecified Additional Impression: Urinary tract infection Urinary tract infection type: acute cystitis Hematuria presence: without hematuria Qualified Codes: N30.00 - Acute cystitis without hematuria ANIL VENEGAS DO Jul 11, 2019 07:55
[2019-07-11] MEDS ORDERED: CONTRAST GIVEN MC PRN (08:00)
[2019-07-11] MEDS ORDERED: IV NORMAL SALINE 1,000ML 1,000 ML IV ONE (08:00)
[2019-07-11] MEDS ORDERED: ONDANSETRON PF 4 MG/2 ML VIAL. IV ONE (08:00)
[2019-07-11] MEDS ORDERED: IOHEXOL 300 MG/ML 75 ML VIAL. IV ONE (08:00)
[2019-07-11 08:09] LABS: BASO % 1 % (0-3); EOS % 1 % (0-3); HEMATOCRIT 39.7 % (36.0-47.0); HEMOGLOBIN 13.1 g/dL (12.0-15.5); LYMPH # 1.7 x10^3/uL (1.0-4.8); LYMPH % 41 % (24-48); MEAN CORPUSCULAR HEMOGLOBIN 31 pg (25-35); MEAN CORPUSCULAR HGB CONC 33 g/dL (31-37); MEAN CORPUSCULAR VOLUME 95 fL (79-100); MONO # 0.3 x10^3/uL (0.0-1.1); MONO % 9 % (0-9); NEUT % 48 % (31-73); PLATELET COUNT 191 x10^3/uL (140-400); RED BLOOD COUNT 4.18 x10^6/uL (3.50-5.40); RED CELL DISTRIBUTION WIDTH 13.2 % (11.5-14.5); WHITE BLOOD COUNT 4.1 x10^3/uL (4.0-11.0)
[2019-07-11 08:23] LABS: ALBUMIN 3.5 g/dL (3.4-5.0); ALBUMIN/GLOBULIN RATIO 0.9 (1.0-1.7); CALCIUM 8.8 mg/dL (8.5-10.1); GFR 67.5; POTASSIUM 3.6 mmol/L (3.5-5.1); TOTAL BILIRUBIN 0.3 mg/dL (0.2-1.0); TOTAL PROTEIN 7.4 g/dL (6.4-8.2)
--- NOTE | 2019-07-11 08:50 | RAD ---
CT study of the abdomen and pelvis with contrast Clinical indications: Severe lower abdominal pain TECHNIQUE: After IV infusion of 75 cc of Omnipaque 300, helical CT scanning of the abdomen and pelvis was performed. No GI contrast was administered. This may decrease the sensitivity to detect GI tract pathology. PQRS compliance Statement One or more of the following individualized dose reduction techniques were utilized for this study: 1. Automated exposure control 2. Adjustment of the mA and/or kV according to patient size 3. Use of iterative reconstruction technique COMPARISON: September 22, 2006. FINDINGS: The liver spleen and pancreas and gallbladder are normal. No extra hepatic biliary ductal dilatation is seen. No adrenal mass is evident. Both kidneys are normal without hydronephrosis or hydroureter. Urinary bladder wall smooth. The endometrial canal measures up to 14 mm in thickness. This is abnormal. There are 2 enhancing nodules within the endometrial canal one measuring 22 mm on the left side and one measuring 16 mm in transverse dimension on the right side. No dominant ovarian cyst or mass is seen. There is nodular thickening of the posterior inferior aspect of the vaginal vault on the left side which measures 32 mm in AP dimension and 22 mm in transverse dimension. There is diffuse wall thickening of the colon down into the rectosigmoid region. The terminal ileum is unremarkable. There are no CT findings of appendicitis. No obstructive bowel pattern is evident. There is wall thickening of the antrum of the stomach and the proximal duodenum. No free air or free fluid is evident. Mild lung base atelectasis is seen bilaterally. No lytic process is evident. Transitional vertebra is evident and it will be labeled as S1 for the sake of consistency.Grade 1 anterolisthesis of L5-S1 is seen secondary to facet arthropathy. There is moderate spinal canal stenosis at L5-S1. IMPRESSION: Diffuse colitis. Wall thickening of the antrum stomach and proximal duodenum. This may be secondary to gastritis/duodenitis or peptic ulcer disease. Abnormal endometrial canal of the uterus including 2 enhancing nodules. Recommend outpatient transabdominal and transvaginal pelvic sonography for further evaluation. Abnormal nodular soft tissue thickening of the posterior inferior vaginal vault on the left side. Recommend correlation with clinical pelvic exam. Pelvic sonography including transperineal study may be helpful. Spinal canal stenosis at L4-5 secondary to grade 1 anterolisthesis. Electronically signed by: Darell Lopez MD (07/11/2019 8:47 AM) [place] [id number]
[2019-07-11 09:09] LABS: BARBITURATES NEG (NEG); BENZODIAZEPINES NEG (NEG); CANNABINOIDS NEG (NEG); COCAINE NEG (NEG); METHADONE NEG (NEG); OPIATES NEG (NEG); PHENCYCLIDINE NEG (NEG)
[2019-07-11 09:10] LABS: AMPHETAMINE/METHAMPHETAMINE NEG (NEG)
[2019-07-11 09:18] LABS: BACTERIA,URINE FEW /HPF (0-FEW); BILIRUBIN,URINE NEG (NEG); CLARITY,URINE HAZY; COLOR,URINE YELLOW; GLUCOSE,URINE NEG (NEG); NITRITE,URINE NEG (NEG); SQUAMOUS EPITHELIAL CELL,UR FEW /LPF; UROBILINOGEN,URINE 0.2 mg/dL (0.2 mg/dL)
[2019-07-11] MEDS ORDERED: CIPR500T94 PO (09:52)
[2019-07-11] MEDS ORDERED: ONDA4TAB12 PO (09:52)
[2019-07-11] MEDS ORDERED: OMEP40CA45 PO (09:52)
[2019-07-11 10:00] VITALS: BP 149/89
[2019-07-11] MEDS ORDERED: HYDR-3165 PO (20:47)
--- NOTE | 2019-07-14 22:28 | EKG ---
[address] [address] Test Date: 2019-07-11 Test Time: 07:50:21 Pat Name: KEVIN PHAN Department: Room: Gender: F Retail Pharmacy Technician: FLAKO : 1955 Requested By: ANIL VENEGAS Order Number: [id number] Reading MD: Jose Ford MD Measurements Intervals [place] Rate: 65 P: 64 TN: 164 QRS: 27 QRSD: 76 T: 46 QT: 406 QTc: 423 Interpretive Statements SINUS RHYTHM Electronically Signed On 07-17-2019 10:38:03 CDT by Jose Ford MD
== END 2019-07-11 10:00 | disposition home or self-care (01) ==
LOC: ER 07:39
DX: N39.0 Urinary tract infection, site not specified (principal); R07.89 Other chest pain; K21.9 Gastro-esophageal reflux disease without esophagitis; I10 Essential (primary) hypertension; F17.210 Nicotine dependence, cigarettes, uncomplicated; Z86.2 Personal history of diseases of the blood and blood-forming organs and certain disorders involving the immune mechanism; Z90.89 Acquired absence of other organs
CPT/HCPCS: 36415; 74177; 80053; 80307; 81001; 83690; 84484; 85025; 87086; 93005; 96361; 96374; 96375; 99285; J2405; J3010; Q9967; J7030

== ENCOUNTER 2019-07-11 19:41 | Emergency (ER) | payer SELFPAY ==
[~2019-07-11] VITALS: Ht 160 cm; Wt 64.4 kg
[~2019-07-11 19:41] MED LIST changes: +CIPR500T94 PO; +OMEP40CA45 PO; +ONDA4TAB12 PO
[2019-07-11] MEDS ORDERED: HYDROcodone/APAP 5/325MG 1 TAB TABLET PO ONE (20:00)
[2019-07-11] MEDS ORDERED: ONDANSETRON ODT 4 MG TAB.RAPDIS PO ONE (20:00)
--- NOTE | 2019-07-11 20:02 | PHYS DOC ---
Past History Past Medical History: Anemia, GERD, Hypertension Past Surgical History: Appendectomy Smoking: Cigarettes Alcohol Use: Occasionally Drug Use: None Adult General Chief Complaint Chief Complaint: ABDOMINAL PAIN HPI HPI 64-year-old female returns to the emergency room with lower abdominal pain. The patient was seen earlier today by my colleague and diagnosed with the UTI, colitis, and had an abnormal CT of the pelvis with recommended ultrasound follow-up and OB consult an outpatient. Patient tells me that she has return to the emergency room because her abdominal pain has returned and she has no pain medication. She was able to brass pickler her Cipro prescription, but could not afford the omeprazole or the ondansetron. She understands that and will take a couple of days for the antibiotics to work, but she is concerned about the pain. I asked her she would be able to afford pain medication if she went home and she states that she does have someone who can take her to the pharmacy that she should be able to afford the medication. She has no new complaints. Review of Systems Review of Systems Constitutional: Denies fever or chills [] Eyes: Denies change in visual acuity, redness, or eye pain [] HENT: Denies nasal congestion or sore throat [] Respiratory: Denies cough or shortness of breath [] Cardiovascular: No additional information not addressed in HPI [] GI: Lower abdominal pain, nausea, vomiting. Denies bloody stools or diarrhea. [] : Denies dysuria or hematuria [] Musculoskeletal: Denies back pain or joint pain [] Integument: Denies rash or skin lesions [] Neurologic: Denies headache, focal weakness or sensory changes [] Endocrine: Denies polyuria or polydipsia [] All other systems were reviewed and found to be within normal limits, except as documented in this note. Current Medications Current Medications Current Medications Medications (Trade) Dose Ordered Sig/Clau Start Time Stop Time Status Last Admin Dose Admin Acetaminophen/ Hydrocodone Bitart (Lortab 5/325) 1 tab 1X ONCE 07/11/19 20:00 07/11/19 20:01 UNV Ondansetron HCl (Zofran Odt) 4 mg 1X ONCE 07/11/19 20:00 07/11/19 20:01 UNV Allergies Allergies Allergies Coded Allergies Type Severity Reaction Last Updated Verified No Known Drug Allergies 07/11/19 No Physical Exam Physical Exam Constitutional: Well developed, well nourished, no acute distress, non-toxic appearance. [] HENT: Normocephalic, atraumatic, bilateral external ears normal, oropharynx moist, no oral exudates, nose normal. [] Eyes: PERRLA, EOMI, conjunctiva normal, no discharge. [] Neck: Normal range of motion, no tenderness, supple, no stridor. [] Cardiovascular:Heart rate regular rhythm, no murmur [] Lungs & Thorax: Bilateral breath sounds clear to auscultation [] Abdomen: Bowel sounds normal, soft, lower abdominal tenderness, no masses, no pulsatile masses. [] Skin: Warm, dry, no erythema, no rash. [] Back: No tenderness, no CVA tenderness. [] Extremities: No tenderness, no cyanosis, no clubbing, ROM intact, no edema. [] Neurologic: Alert and oriented X 3, normal motor function, normal sensory function, no focal deficits noted. [] Psychologic: Affect normal, judgement normal, mood normal. [] EKG EKG [] Radiology/Procedures Radiology/Procedures [] Course & Med Decision Making Course & Med Decision Making Pertinent Labs and Imaging studies reviewed. (See chart for details) I have given the patient was Zofran 4 mg ODT and one Gurley 5/325. This did control the patient's pain. I will discharge her with a prescription for 10 Gurley 5/325. I have advised that she continue her other prescriptions. She is stable for discharge at this time. [] Dragon Disclaimer Dragon Disclaimer This electronic medical record was generated, in whole or in part, using a voice recognition dictation system. Departure Departure: Impression: Primary Impression: UTI (urinary tract infection) Additional Impressions: Abdominal pain Abnormal tissue in uterus Disposition: HOME, SELF-CARE Condition: STABLE Referrals: JOHN GUTHRIE APRN (PCP) Patient Instructions: Abdominal Pain, Women, Urinary Tract Infection, [id number] Scripts Hydrocodone Bit/Acetaminophen (NORCO 5-325 TABLET) 1 Each Tablet 1 TAB PO PRN Q6HRS PRN for PAIN, #10 TAB 0 Refills Prov: UMANG MALDONADO DO 07/11/19 Problem Qualifiers Primary Impression: UTI (urinary tract infection) Urinary tract infection type: acute cystitis Hematuria presence: with hematuria Qualified Codes: N30.01 - Acute cystitis with hematuria Additional Impressions: Abdominal pain Abdominal location: lower abdomen, unspecified Qualified Codes: R10.30 - Lower abdominal pain, unspecified UMANG MALDONADO DO Jul 11, 2019 20:02
[2019-07-11] MEDS ORDERED: cefTRIAXone IM 1 GM VIAL IM ONE (20:15)
[2019-07-11] MEDS ORDERED: HYDR-3165 PO (20:47)
[2019-07-11 20:51] VITALS: BP 142/90
[2019-07-11] MEDS ORDERED: ONDANSETRON 4MG ODT 4TABLET STARTPACK. PO ONE ×2 (20:57→21:00)
== END 2019-07-11 20:57 | disposition home or self-care (01) ==
LOC: ER 19:41
DX: N30.01 Acute cystitis with hematuria (principal); N85.8 Other specified noninflammatory disorders of uterus; K21.9 Gastro-esophageal reflux disease without esophagitis; I10 Essential (primary) hypertension; F17.210 Nicotine dependence, cigarettes, uncomplicated; Z86.2 Personal history of diseases of the blood and blood-forming organs and certain disorders involving the immune mechanism
CPT/HCPCS: 96372; 99284; J0696; Q0162

== ENCOUNTER → 2019-08-09 | Outpatient (CLI) | payer OTHER ==
[2019-07-11 20:51] VITALS: BP 142/90
--- NOTE | 2019-08-10 13:20 | RAD ---
DATE: 08/09/2019 EXAM: DIGITAL SCREEN BILAT W/CAD HISTORY: Routine screening COMPARISON: 07/29/2015, 08/08/2016 mammographic exams This study was interpreted with the benefit of Computerized Aided Detection (CAD). Breast Density: SCATTERED The breast parenchyma shows scattered fibroglandular densities. Breast parenchyma level B. FINDINGS: No suspicious calcification, masses, or distortion. IMPRESSION: Stable BI-RADS CATEGORY: 1 NEGATIVE RECOMMENDED FOLLOW-UP: 12M 12 MONTH FOLLOW-UP PQRS compliance statement: Patient information was entered into a reminder system with a target due date for the next mammogram. Mammography is a sensitive method for finding small breast cancers, but it does not detect them all and is not a substitute for careful clinical examination. A negative mammogram does not negate a clinically suspicious finding and should not result in delay in biopsying a clinically suspicious abnormality. "Our facility is accredited by the [employer] Mammography Program."
== END | disposition home or self-care (01) ==
LOC: MAMMO 12:25
PROVIDERS: ATTEND Nurse Practitioner Family
DX: Z12.31 Encounter for screening mammogram for malignant neoplasm of breast (principal)
CPT/HCPCS: 77067

== ENCOUNTER 2019-08-27 21:28 | Emergency (ER) | payer OTHER ==
[~2019-08-27] VITALS: Ht 160 cm; Wt 64.4 kg
[~2019-08-27 21:28] MED LIST changes: +OMEP-229 PO; -OMEP20CA10 PO
[2019-08-27] MEDS ORDERED: diazePAM 5 MG TABLET PO ONE (22:00)
[2019-08-27] MEDS ORDERED: HYDROcodone/APAP 5/325MG 1 TAB TABLET PO ONE (22:00)
[2019-08-27] MEDS ORDERED: HYDR-3165 PO (22:00)
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
[2019-08-27 22:25] VITALS: BP 154/94
== END 2019-08-27 22:26 | disposition home or self-care (01) ==
LOC: ER 21:28
DX: M54.5 Low back pain (principal); K21.9 Gastro-esophageal reflux disease without esophagitis; I10 Essential (primary) hypertension; F17.210 Nicotine dependence, cigarettes, uncomplicated; Z86.2 Personal history of diseases of the blood and blood-forming organs and certain disorders involving the immune mechanism
CPT/HCPCS: 99283

== ENCOUNTER 2019-08-30 09:27 | Emergency (ER) | payer OTHER ==
[~2019-08-30] VITALS: Ht 160 cm; Wt 64.4 kg
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
[2019-08-30] MEDS ORDERED: KETOROLAC 60 MG/2 ML VIAL. IM ONE (10:00)
[2019-08-30 10:09] VITALS: BP 154/89
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
== END 2019-08-30 10:45 | disposition home or self-care (01) ==
LOC: ER 09:27
DX: M54.5 Low back pain (principal); K21.9 Gastro-esophageal reflux disease without esophagitis; I10 Essential (primary) hypertension; F17.210 Nicotine dependence, cigarettes, uncomplicated; Z86.2 Personal history of diseases of the blood and blood-forming organs and certain disorders involving the immune mechanism
CPT/HCPCS: 72100; 96372; 99284; J1885

== ENCOUNTER 2020-04-30 19:20 | Emergency (ER) | payer OTHER ==
[~2020-04-30] VITALS: Ht 160 cm; Wt 67.2 kg
[~2020-04-30 19:20] MED LIST changes: -OMEP-229 PO; +OMEP20CA16 PO
[2020-04-30 20:45] LABS: BACTERIA,URINE 0 /HPF (0-FEW); BILIRUBIN,URINE NEG (NEG); CLARITY,URINE CLEAR; COLOR,URINE STRAW; GLUCOSE,URINE NEG (NEG); NITRITE,URINE NEG (NEG); RBC,URINE OCC /HPF (0-2); SQUAMOUS EPITHELIAL CELL,UR FEW /LPF; UROBILINOGEN,URINE 0.2 mg/dL (0.2 mg/dL)
== END 2020-04-30 20:05 | disposition left against medical advice (07) ==
LOC: ER 19:20
DX: M54.5 Low back pain (principal); Z53.21 Procedure and treatment not carried out due to patient leaving prior to being seen by health care provider
CPT/HCPCS: 81001; 87086

== ENCOUNTER 2021-11-11 17:34 | Emergency (ER) | payer SELFPAY ==
[~2021-11-11] VITALS: Ht 160 cm; Wt 67.2 kg
[~2021-11-11 17:34] MED LIST changes: -OMEP40CA45 PO; +OMEP40CA7 PO
--- NOTE | 2021-11-11 18:20 | PHYS DOC ---
Past History Past Medical History: Anemia, GERD, Hypertension Past Surgical History: Appendectomy Smoking: Cigarettes Alcohol Use: Occasionally Drug Use: None Adult General HPI HPI Patient is a 66-year-old female, endorsing Covid positive status who presents with back pain/right flank pain that started this morning, dull and achy in nature, 6 out of 10, with a little bit of radiation down towards her groin. States she has had problems with her back in the past that feels similar. States has had mild nausea but no vomiting. States he did not take anything for pain. Denies recent travels, traumas, fevers, chest pain, shortness of breath, other abdominal pain, vomiting, dysuria, hematuria, blood in the stool or diarrhea. Denies any numbness/weakness/tingling. Denies any dyspnea on exertion, orthopnea, PND or edema. Review of Systems Review of Systems Review of systems otherwise unremarkable except noted in HPI Allergies Allergies Allergies Coded Allergies Type Severity Reaction Last Updated Verified No Known Drug Allergies 07/11/19 No Physical Exam Physical Exam Constitutional: Well developed, well nourished, no acute distress, non-toxic appearance. [] HENT: Normocephalic, atraumatic, oropharynx moist, Eyes: conjunctiva normal, no discharge. [] Neck: Normal range of motion, no tenderness, supple, no stridor. [] Cardiovascular:Heart rate regular rhythm, no murmur [] Lungs & Thorax: Bilateral breath sounds clear to auscultation [] Abdomen: soft, no tenderness, no masses, no pulsatile masses. [] Skin: Warm, dry, no erythema, no rash. [] Back: No tenderness, no CVA tenderness. [] Extremities: No tenderness, no cyanosis, no clubbing, ROM intact, no edema. [] Neurologic: Alert and oriented X 3, no focal deficits noted. [] Psychologic: Affect normal, judgement normal, mood normal. [] EKG EKG [] Radiology/Procedures Radiology/Procedures [] Heart Score C/O Chest Pain: No Risk Factors: Risk Factors: DM, Current or recent (<one month) smoker, HTN, HLP, family history of CAD, obesity. Risk Scores: Risk Factors: DM, Current or recent (<one month) smoker, HTN, HLP, family history of CAD, obesity. Course & Med Decision Making Course & Med Decision Making Patient is a 66-year-old female who is COVID positive per her endorsement complaining of back pain/right flank pain Vital signs nonconcerning. Physical exam noted above. Given pain medicine and ice. EKG with a rate of 72, QRS of 78, QTc of 411, no STEMI. Normal troponin. Urinalysis nonconcerning. CT with no acute findings. Discussed all findings with patient. Discussed symptom control at home for acute on chronic low back pain. Advised to follow-up in the morning with her primary care physician. Gave return precautions to the ED. Patient grateful, verbalized understanding and agreed to plan of discharge. Dragon Disclaimer Dragon Disclaimer This electronic medical record was generated, in whole or in part, using a voice recognition dictation system. Departure Departure: Impression: Primary Impression: Back pain Disposition: 01 HOME / SELF CARE / HOMELESS Condition: GOOD Referrals: LENA GREENE (PCP) Patient Instructions: Back Pain, Adult Additional Instructions: Thank you for coming into the emergency department tonight and allowing us to take care of you. Please read the attached information carefully to go over things we discussed. You can continue Tylenol, ibuprofen and ice as needed at home as long as you can tolerate and are not allergic. It is very important you follow-up in the morning with your primary care physician update on your ED visit and set up a follow-up as soon as you can. Please come back with new or concerning symptoms as discussed. ALEJANDRA CERON MD Nov 11, 2021 18:20
[2021-11-11 18:30] VITALS: BP 145/85
[2021-11-11] MEDS ORDERED: ACETAMINOPHEN 500 MG TABLET PO ONE (18:30)
[2021-11-11 18:55] LABS: CLARITY,URINE CLEAR; COLOR,URINE YELLOW; GLUCOSE,URINE NEG (NEG)
[2021-11-11 18:56] LABS: BACTERIA,URINE 0 /HPF (0-FEW); NITRITE,URINE NEG (NEG); RBC,URINE 0 /HPF (0-2); SQUAMOUS EPITHELIAL CELL,UR OCC /LPF; UROBILINOGEN,URINE 0.2 mg/dL (0.2 mg/dL); WBC,URINE OCC /HPF (0-4)
--- NOTE | 2021-11-11 19:31 | RAD ---
CT ABDOMEN+PELVIS WO History: Bilateral flank pain. Comparison: CT abdomen pelvis 07/11/2019. Technique: Noncontrast CT of the abdomen and pelvis. Findings: The lung bases are clear. The liver, gallbladder, pancreas, spleen, adrenal glands, and kidneys are u nremarkable. There is no nephrolithiasis or hydronephrosis. No perinephric fat stranding. The bladder is decompressed with mild circumferential wall thickening. Uterus and adnexa are unremarkable. Stomach is well distended. Small bowel is within normal limits. There are postsurgical changes of the cecum from appendectomy. Mural fatty infiltration in the cecum. The colon is otherwise unremarkable. No wall thickening or pericolonic inflammatory changes. No intra-abdominal free air or free fluid. Unenhanced vasculature is unremarkable. No adenopathy. Sof t tissues are within normal limits. Degenerative changes of the lower lumbar facets. Transitional lum bosacral anatomy with 6 nonrib-bearing lumbar type vertebral bodies. Mild anterolisthesis of L5 on L6 . Rudimentary L6 S1 disc with pseudoarticulating transverse processes. Osteitis pubis. Impression: 1. Bladder wall thickening likely due to decompression, however recommend correlation with urinalysi s for cystitis. 2. No nephrolithiasis or hydronephrosis. No perinephric fat stranding. ------ Exposure: One or more of the following individualized dose reduction techniques were utilized for thi s examination: 1. Automated exposure control 2. Adjustment of the mA and/or kV according to patient size 3. Use of iterative reconstruction technique. Electronically signed by: Hebert Sanchez MD (11/11/2021 7:28 PM) [facility]
[2021-11-11] MEDS ORDERED: KETOROLAC 60 MG/2 ML VIAL. IM ONE (19:45)
[2021-11-11] MEDS ORDERED: oxyCODONE IR 5 MG TABLET PO PRN (19:45)
[2021-11-11] MEDS ORDERED: CYCLOBENZAPRINE 10MG 4TABLET STARTPACK PO ONE (21:00)
--- NOTE | 2021-11-11 21:39 | EKG ---
[address] [address] Test Date: 2021-11-11 Test Time: 18:48:08 Pat Name: KEVIN PHAN Department: Room: Gender: F Electrical Drafter: : 1955 Requested By: ALEJANDRA CERON Order Number: [id number] Reading MD: Oniel Self Measurements Intervals [place] Rate: 72 P: 0 KS: 144 QRS: 29 QRSD: 78 T: 31 QT: 374 QTc: 411 Interpretive Statements SINUS RHYTHM NORMAL ECG RI6.01 Compared to ECG 07/11/2019 07:50:21 No significant changes Electronically Signed On 11-15-2021 14:10:46 PHYSICIAN CREDENTIALING SPECIALIST by Oniel Self
== END 2021-11-11 19:52 | disposition home or self-care (01) ==
LOC: ER 17:34
DX: M54.89 Other dorsalgia (principal); K21.9 Gastro-esophageal reflux disease without esophagitis; I10 Essential (primary) hypertension; F17.210 Nicotine dependence, cigarettes, uncomplicated; Z86.2 Personal history of diseases of the blood and blood-forming organs and certain disorders involving the immune mechanism; Z90.89 Acquired absence of other organs
CPT/HCPCS: 36415; 74176; 81001; 84484; 93005; 96372; 99285; J1885